=== PATIENT | female | born 1950 | race Caucasian/White ===

== ENCOUNTER 2022-10-22 07:23 | Emergency (ER) | payer MEDICAID ==
[~2022-10-22] VITALS: Ht 157.5 cm; Wt 68.0 kg
--- NOTE | 2022-10-22 07:23 | NUR ---
BROUGHT BACK TO BED #8 AND TRIAGED.REPORT GIVEN TO IRIS
--- NOTE | 2022-10-22 07:24 | NUR ---
RECEIVED PT FROM JAKE COLÓN. PT BIB DAUGHTER WITH C/O SOB. PT HAS BEEN TO SEVERAL HOSPITALS RECENTLY WITH NO DX FOR THE SOB, SHE STATES THEY SAY SHE HAS ANXIETY. PT IS A DIALYSIS PT WITH LEFT UPPER CHEST COVERED WITH CDI DRESSING. LUNG SOUNDS CTA, NO PERIPHERAL EDEMA NOTED. SKIN CDI. DISTAL PULSES NORMAL, SKIN WARM. DENIES N/V/C/D. DENIES PAIN. VSS. PT PLACED IN GOWN AND ON MONITOR. SIDERAILS UP X2.
--- NOTE | 2022-10-22 07:30 | NUR ---
ER at bedside examining patient.
[2022-10-22 08:09] LABS: BASOPHILS # (AUTO) 0.1 K/uL (0.0-0.2); BASOPHILS % (AUTO) 0.8 % (0.0-2.0); EOSINOPHILS # (AUTO) 0.3 K/uL (0.0-0.4); HEMATOCRIT 32.9 % (36-48); HEMOGLOBIN 11.1 g/dL (12.0-16.0); LYMPHOCYTES # (AUTO) 1.2 K/uL (1.0-5.5); LYMPHOCYTES % (AUTO) 15.4 % (20.5-51.5); MEAN CORPUSCULAR HEMOGLOBIN 34 pg (27-31); MEAN CORPUSCULAR HGB CONC 34 % (32-36); MEAN CORPUSCULAR VOLUME 102 fL (79.0-98.0); MONOCYTES # (AUTO) 0.7 K/uL (0.0-1.0); MONOCYTES % (AUTO) 9.7 % (1.7-9.3); NEUTROPHILS # (AUTO) 5.4 K/uL (1.8-7.7); NEUTROPHILS % (AUTO) 70.1 % (40.0-70.0); PLATELET COUNT (AUTO) 120 K/uL (130-430); RED BLOOD CELL COUNT(AUTO) 3.24 MIL/uL (4.2-6.2); RED CELL DISTRIBUTION WIDTH 15.1 % (9.0-15.0); WHITE BLOOD COUNT (AUTO) 7.7 K/uL (4.8-10.8)
[2022-10-22 08:17] LABS: ANION GAP 11 (5-15); CALCIUM 8.9 mg/dL (8.4-11.0); CHLORIDE 100 mmol/L (98-107); CREATININE 7.58 mg/dL (0.55-1.30); GLUCOSE 100 mg/dL (70-99); UREA NITROGEN, BLOOD 34 mg/dL (8-21)
[2022-10-22 08:19] LABS: GFR AFRICAN AMERICAN 7 mL/min (>90)
[2022-10-22 08:25] LABS: ALANINE AMINOTRANSFERASE 21 U/L (12-78); ALBUMIN 3.3 g/dL (3.4-4.8); ASPARTATE AMINOTRANSFERASE 24 U/L (10-37); TOTAL BILIRUBIN 0.6 mg/dL (0.0-1.0)
--- NOTE | 2022-10-22 08:40 | NUR ---
REPORTED TO DR. DIAS THAT PT'S CREATININE 7.58, TROPONIN 51. NNOS
--- NOTE | 2022-10-22 09:34 | NUR ---
NOTIFIED ED ADMITTING,[place], REGARDING DR. DIAS'S REQUEST FOR ADMISSION/TRANSFER. PER DR. DIAS, PT IS STABLE FOR TRANSFER. WILL CONTACT TELEGRAPH MECHANIC REGARDING THIS MATTER. PER [facility]: [facility]/MEDICAL- ALLIED PACIFIC IPA
--- NOTE | 2022-10-22 09:42 | NUR ---
COVID AND MRSA SWABBED AND SENT TO LAB
[2022-10-22] MEDS ORDERED: ASPIRIN 81 MG TAB.CHEW PO ONE (09:45)
[2022-10-22] MEDS ORDERED: ASPI-1393 PO (09:52)
[2022-10-22] MEDS ORDERED: APIX2.5T PO (09:52)
[2022-10-22] MEDS ORDERED: LOSA25TA3 PO (09:52)
[2022-10-22] MEDS ORDERED: AMIO200T66 PO (09:52)
--- NOTE | 2022-10-22 09:53 | NUR ---
MED REC COMPLETED.
--- NOTE | 2022-10-22 09:58 | NUR ---
ASA 324 MG PO GIVEN.
--- NOTE | 2022-10-22 10:30 | NUR ---
# 22 gauge angiocath placed to RH. Use of asceptic technique. Opsite placed over site. Blood return noted. Flushed with 10 cc of normal saline. No evidence of infiltration noted. Patient tolerated well.
--- NOTE | 2022-10-22 10:37 | NUR ---
PURCHASING OFFICER CALLED TO GET CLINICAL UPDATE ON PT STATUS. STATED DR. LI WILL CALL BACK FOR PEER TO PEER WITH DR. DIAS. STATED THEY ARE LOOKING AT [place]. REQUESTED FAX OF FACESHEET AND CLINICALS SENT TO [facility] FOR POSSIBLE PLACEMENT. FAX: [phone] SPOKE TO ADAM
--- NOTE | 2022-10-22 10:38 | NUR ---
DR. LI, [facility] DOC, CALLED BACK TO SPEAK TO DR. DIAS REGARDING PT STATUS.
--- NOTE | 2022-10-22 11:25 | NUR ---
ENDORSED ALL CARE TO JAKE JOSE.
--- NOTE | 2022-10-22 11:27 | NUR ---
[place] of care received,pt A&Ox4, VSS, respirations even and unlabored, will cont to monitor.
--- NOTE | 2022-10-22 12:40 | NUR ---
RECEIVED PT FROM JAKE JOSE. ASSUMED CARE.
--- NOTE | 2022-10-22 14:35 | NUR ---
CALLED [facility] AND SPOKE TO ADAM, POKE IN, REGARDING UPDATE ON TRANSFER INFO. AT THIS TIME, THERE IS NO UPDATE AND STILL WAITING FOR BED PLACEMENT AT [place]. JAKE SIMMONS NOTIFIED.
[2022-10-22 15:18] VITALS: BP_SYST 145
--- NOTE | 2022-10-22 15:33 | NUR ---
TRANSFER INFO JOSÉ DEAN RM: [id number] ACCEPTING: [facility] REPORT: [phone] FISCAL SERVICES DIRECTOR STATED THEY WILL CALL BACK IN 10 MINUTES TO GIVE AUTH FOR TRANSPORT.
--- NOTE | 2022-10-22 16:12 | NUR ---
[employer] OPERATOR CALLED BACK STATED SHE WILL CALL BACK WITH ETA AND WHICH VENDOR WILL BE PICKING UP PT. RESERVATION #: [id number] SPOKE TO ADAM
--- NOTE | 2022-10-22 17:52 | NUR ---
medic 1 at bedside. aleenarn notified
== END 2022-10-22 17:52 | disposition short-term general hospital (02) ==
LOC: SED 07:23
DX: R06.02 Shortness of breath (principal); R77.8 Other specified abnormalities of plasma proteins; I13.2 Hypertensive heart and chronic kidney disease with heart failure and with stage 5 chronic kidney disease, or end stage renal disease; N18.6 End stage renal disease; Z79.899 Other long term (current) drug therapy; Z95.4 Presence of other heart-valve replacement; Z94.0 Kidney transplant status; Z20.822 Contact with and (suspected) exposure to COVID-19
CPT/HCPCS: 36415; 71045; 80053; 83880; 84484; 85025; 93005; 99285